=== PATIENT | female | born 1980 | race Caucasian/White ===

== ENCOUNTER 2016-11-02 08:21 | Emergency (ER) | payer MEDICAID ==
[~2016-11-02] VITALS: Ht 175.3 cm; Wt 84.4 kg
[2016-11-02] MEDS ORDERED: OMEP20TA7 PO (09:03)
[2016-11-02] MEDS: ANTACID SUSP 30 ML UDC (MYLANTA) PO ONE (09:29)
[2016-11-02] MEDS: ONDANSETRON 4 MG (ZOFRAN) ORAL DISSOLVE TAB SL ONE (09:29)
[2016-11-02] MEDS: LIDOCAINE 2% VISCOUS 15 ML UDC PO ONE (09:30)
[2016-11-02 09:52] LABS: KETONES,URINE NEGATIVE (NEGATIVE); LEUKOCYTE ESTERASE ,URINE 1+ (NEGATIVE); NITRITE,URINE NEGATIVE (NEGATIVE); PH,URINE 6.5 (5-9); PROTEIN,URINE 2+ (NEGATIVE); UROBILINOGEN,URINE 8 MG/DL (NORMAL)
[2016-11-02 10:12] LABS: BILIRUBIN,URINE 1+ (NEGATIVE); HYALINE CASTS, URINE 0-2 /LPF; SQUAMOUS EPITHELIAL CELL,UR 25-50 /HPF; WBC,URINE 0-2 /HPF
[2016-11-02] MEDS ORDERED: SUCR1ORA5 PO (10:36)
[2016-11-02] MEDS ORDERED: FAMO-119 PO (10:36)
[2016-11-02] MEDS ORDERED: ONDA4TAB8 SL (10:37)
--- NOTE | 2016-11-02 10:37 | ED Abdominal Pain ---
General Chief Complaint: Abdominal/GI Problems Stated Complaint: NAUSEA, BACK PAIN, ABD PAIN Nursing Triage Note: c/o acute onset of abdominal and back pain with emesis. Onset last night. Hx of gastric sleeve, cholecystectomy, GERD, and x 4. Sepsis Screen: No Definite Risk Source of Information: Patient Exam Limitations: No Limitations History of Present Illness Time Seen By Provider: 08:39 Initial Comments This 35-year-old woman presents to the emergency room with relatively severe pain in the epigastric area radiating to the back. Symptoms started last night. She has had associated vomiting. Tums seems to improve her pain. Pain at home was 10 out of 10 and is now 5 out of 10. She has heartburn previously but not symptoms of this intensity. She has had a cholecystectomy, lap band with reversal, and gastric sleeve. LMP was 10/27. She is presently on omeprazole daily. Allergies and Home Medications Allergies Coded Allergies: No Known Drug Allergies (Unverified , 11/02/16) Home Medications Famotidine 20 Mg Tablet, 20 MG PO BID, #30 Prescribed by: INDIA ABBOTT on 11/02/16 1036 Omeprazole 20 Mg Tablet.dr, 20 MG PO DAILY, (Reported) Ondansetron 4 Mg Tab.rapdis, 4 MG SL Q4H PRN for NAUSEA/VOMITING-1ST LINE, #10 Prescribed by: INDIA ABBOTT on 11/02/16 1037 Sucralfate 1 Gm/10 Ml Oral.susp, 1 GM PO QID, #1200 Prescribed by: INDIA BABOTT on 11/02/16 1036 Review of Systems Constitutional: no symptoms reported EENTM: No Symptoms Reported Respiratory: No Symptoms Reported Cardiovascular: No Symptoms Reported Gastrointestinal: See HPI Genitourinary: No Symptoms Reported Musculoskeletal: no symptoms reported Skin: no symptoms reported Psychiatric/Neurological: No Symptoms Reported Endocrine: No Symptoms Reported Past Hxkcwwl-Taaazs-Bwacyk Hx Patient Social History Recent Foreign Travel: No Contact w/Someone Who Travel: No Recent Infectious Disease Expo: No Surgeries HX Surgeries: Yes Surgeries: Abdominal (lap band with reversible, gastric sleeve), Section, Gallbladder, Tubal Ligation Respiratory Hx Respiratory Disorders: No Cardiovascular Hx Cardiac Disorders: No Neurological Hx Neurological Disorders: No Reproductive System : No Genitourinary Hx Genitourinary Disorders: No Gastrointestinal Hx Gastrointestinal Disorders: Yes Musculoskeletal Hx Musculoskeletal Disorders: No Endocrine Hx Endocrine Disorders: No HEENT HX ENT Disorders: No Cancer Hx Cancer: No Psychosocial Hx Psychiatric Problems: No Physical Exam Vital Signs VS - Last 72 Hours, by Label 11/02/16 11/02/16 08:45 10:46 Temp 97.5 Pulse 70 68 Resp 16 16 B/P (MAP) 116/59 Pulse Ox 98 99 O2 Delivery Room Air Capillary Refill : Greater Than 3 Seconds General Appearance: WD/WN, mild distress HEENT: PERRL/EOMI, normal ENT inspection Neck: normal inspection Respiratory: lungs clear, normal breath sounds, no respiratory distress, no accessory muscle use Cardiovascular: regular rate, rhythm, no edema, no murmur Gastrointestinal: normal bowel sounds, soft, tenderness (epigastrium) Extremities: normal inspection, no pedal edema Neurologic/Psychiatric: wood stainer II-XII nml as tested, no motor/sensory deficits, alert, normal mood/affect, oriented x 3 Skin: normal color, warm/dry Progress/Results/Core Measures Results/Orders Lab Results Laboratory Tests Test 11/02/16 09:35 Range/Units Urine Color YELLOW Urine Clarity CLEAR Urine pH 6.5 5-9 Urine Specific [place] 1.015 L 1.016-1.022 Urine Protein 2+ H NEGATIVE Urine Glucose (UA) NEGATIVE NEGATIVE Urine Ketones NEGATIVE NEGATIVE Urine Nitrite NEGATIVE NEGATIVE Urine Bilirubin 1+ H NEGATIVE Urine Urobilinogen 8 H NORMAL MG/DL Urine Leukocyte Esterase 1+ H NEGATIVE Urine RBC (Auto) 2+ H NEGATIVE Urine RBC NONE /HPF Urine WBC 0-2 /HPF Urine Squamous Epithelial Cells 25-50 H /HPF Urine Crystals NONE /LPF Urine Bacteria TRACE /HPF Urine Casts PRESENT /LPF Urine Hyaline Casts 0-2 H /LPF Urine Mucus SMALL H /LPF Urine Culture Indicated NO My Orders Orders - INDIA RUBIO MD Ua Culture If Indicated (11/02/16 08:39) Ondansetron Oral Dissolve Tab (Zofran (11/02/16 09:30) Lidocaine 2% Viscous 15 Ml (Xylocaine Vi (11/02/16 09:30) Antacid Suspension (Mylanta Suspension (11/02/16 09:30) Medications Given in ED Vital Signs/I&O Vital Sign - Last 12Hours 11/02/16 11/02/16 08:45 10:46 Temp 97.5 Pulse 70 68 Resp 16 16 B/P (MAP) 116/59 Pulse Ox 98 99 O2 Delivery Room Air Blood Pressure Mean: 78 Progress Note : Time: 10:32 Progress Note Pain has been reduced by at least 50 percent (/10) after GI cocktail and Zofran. Patient offered conservative therapy versus further workup. She elects conservative therapy. See discharge instructions. Departure Impression Impression: Primary Impression: Epigastric pain Additional Impressions: Nausea and vomiting Qualified Codes: R11.2 - Nausea with vomiting, unspecified Gastritis Qualified Codes: K29.00 - Acute gastritis without bleeding Disposition: HOME, SELF-CARE Condition: Improved Departure-Patient Inst. Decision time for Depature: 10:32 Referrals: ABHIJEET LEMA DO (PCP) Primary Care Physician NARGIS KINNEY (Family) Primary Care Physician Patient Instructions: Acute Abdomen (Belly Pain), Adult (DC), Gastritis (DC) Add. Discharge Instructions: Increase omeprazole to 20 mg twice daily for 2 weeks, then you may resume once daily dosing if pain has resolved. Add Pepcid (famotidine) 20 mg twice daily for 2 weeks, then discontinue if pain resolves. Use Carafate as prescribed for at least the next 2 weeks. Avoid the following: Large meals, eating close to bedtime, caffeine, carbonation , chocolate, fatty or greasy foods, spicy foods, alcohol, tobacco products, tomato products, citrus fruits or juices, mints, NSAID medications such as ibuprofen or naproxen, or anything else you know irritates your stomach. Return to the ER if symptoms worsen. Follow-up with your primary care provider and surgeon as soon as possible. All discharge instructions reviewed with patient and/or family. Voiced understanding. Scripts Ondansetron (Zofran Odt) 4 Mg Tab.rapdis 4 MG SL Q4H Y for NAUSEA/VOMITING-1ST LINE, #10 TAB Prov: INDIA RUBIO MD 11/02/16 Sucralfate (Carafate) 1 Gm/10 Ml Oral.susp 1 GM PO QID, #1200 ML Prov: INDIA RUBIO MD 11/02/16 Famotidine (Pepcid) 20 Mg Tablet 20 MG PO BID, #30 TAB Prov: INDIA RUBIO MD 11/02/16 INDIA RUBIO MD Nov 02, 2016 10:37
[2016-11-02 10:46] VITALS: BP 118/70
== END 2016-11-02 10:45 | disposition home or self-care (01) ==
LOC: EDUNIT# 08:21 → ER 08:24
DX: R10.13 Epigastric pain (principal); R11.2 Nausea with vomiting, unspecified; K29.70 Gastritis, unspecified, without bleeding; Z98.84 Bariatric surgery status
CPT/HCPCS: 81000; 99282

== ENCOUNTER 2017-07-31 19:42 | Outpatient (CLI) | payer MEDICAID ==
[~2017-07-31 19:42] MED LIST: FAMO-119 PO; OMEP20TA7 PO; ONDA4TAB8 SL; SUCR1ORA5 PO
== END 2017-08-01 06:40 | disposition home or self-care (01) ==
LOC: SLEEP 19:42
PROVIDERS: ATTEND Nurse Practitioner Family
DX: G47.10 Hypersomnia, unspecified (principal); R51 Headache
CPT/HCPCS: 95810